=== PATIENT | male | born 1960 | race Caucasian/White ===

== ENCOUNTER 2021-03-05 14:36 | Outpatient (CLI) | payer OTHER, SELFPAY ==
--- NOTE | ~2021-03-05 | DEXA_ITS ---
Bone Density Report Name: Nando Bruner Age: 60 Sex: Male Ethnicity: White Date of : 1960 Indication: hyperparathyroidism; Referring Provider: NORA CURTIS Study: Bone densitometry was performed. Exam Date: March 05, 2021 Accession number: [id number] Bone Density: Region BMD T-score Z-score Classification Total Forearm (Left) 0.641 -0.7 0.0 1/3 Forearm (Left) 0.758 -1.2 -0.4 UD Forearm (Left) 0.479 -0.5 0.2 World Health Organization criteria for BMD impression classify patients as: Normal (T-score at or above -1.0), Osteopenia (T-score between -1.0 and -2.5), or Osteoporosis (T-score at or below -2.5). Clinical Information Provided by Patient: Has the following medical conditions: Hyperparathyroidism Patient maximum height was 71 Drinks caffeinated beverages Impression: The patient has low bone mass, based on the Left Third Radius T-score. Discussion: BONE DENSITY IS LOW AT ONE OR MORE SKELETAL SITES. This patient's lowest T-score is low at one or more skeletal sites. It meets the World Health Organization's (WHO) criteria for ?low bone mass? (T-score between -1.0 and -2.5). The patient's 10-year risk of fracture as calculated by FRAX is less than the threshold where pharmacological therapy is recommended by the National Osteoporosis Foundation (NOF). However, all treatment decisions require clinical judgment and consideration of individual patient factors, including patient preferences, comorbidities, previous drug use, risk factors not captured in the FRAX model (e.g., frailty, falls, vitamin D deficiency, increased bone turnover, interval significant decline in bone density) and possible under or overestimation of fracture risk by FRAX. The patient should follow a healthful lifestyle (good nutrition with adequate calcium and vitamin D, and appropriate weight-bearing exercise). Follow-Up: Consider repeating this study in 2 to 3 years to reassess this patient's status, or sooner if there is some new clinical indication. Reported by: REGI on 03/05/2021 3:20:00 PM. Reviewed, dictated and finalized [facility]
--- NOTE | ~2021-03-05 | DEXA_ITS ---
Bone Density Report Name: Nando Bruner Age: 60 Sex: Male Ethnicity: White Date of : 1960 Indication: hyperparathyroidism; Referring Provider: NORA CURTIS Study: Bone densitometry was performed. Exam Date: March 05, 2021 Accession number: [id number] Bone Density: Region BMD T-score Z-score Classification AP Spine (L1-L4) 0.992 -0.9 -0.3 Normal Femoral Neck (Left) 0.889 -0.3 0.6 Normal Total Hip (Left) 0.942 -0.6 -0.2 Normal Total Hip Bilateral Avg 0.921 -0.8 -0.3 Normal Femoral Neck (Right) 0.893 -0.3 0.7 Normal Total Hip (Right) 0.899 -0.9 -0.4 Normal World Health Organization criteria for BMD impression classify patients as: Normal (T-score at or above -1.0), Osteopenia (T-score between -1.0 and -2.5), or Osteoporosis (T-score at or below -2.5). 10-year Fracture Risk: FRAX not reported because: All T-scores for Spine Total, Hip Total, Femoral Neck at or above -1.0 Clinical Information Provided by Patient: Has the following medical conditions: Hyperparathyroidism Patient maximum height was 71 Drinks caffeinated beverages Impression: The patient has normal bone mass. Discussion: BONE DENSITY IS ABOVE THE MINIMUM DESIRABLE LEVEL AT ALL SKELETAL SITES TESTED. This patient?s bone mineral density is above the minimum desirable level (T-score -1.0 or better) at all sites measured. The patient should follow a healthful lifestyle (good nutrition with adequate calcium and vitamin D, and appropriate weight-bearing exercise). Follow-Up: Consider repeating this study in 5 years or sooner if there is some new clinical indication. Reported by: REGI on 03/05/2021 3:19:00 PM. Reviewed, dictated and finalized at location [facility]
== END 2021-03-05 14:37 | disposition home or self-care (01) ==
PROVIDERS: PCP Family Medicine
DX: E21.3 Hyperparathyroidism, unspecified (principal)
CPT/HCPCS: 77080; 77081

== ENCOUNTER → 2022-01-30 11:11 | Outpatient (CLI) | payer OTHER, SELFPAY ==
--- NOTE | ~2022-01-30 | CT_ITS ---
EXAMINATION: CT abdomen pelvis w con DATE: 01/30/2022 11:40 INDICATION: Right buttock pain. History of kidney stones. Myalgias. TECHNIQUE: Computed tomography (CT) of the abdomen and pelvis was performed with 100 cc Omnipaque 300 intravenous contrast. The dose-length product was 840.46 mGy-cm. Automated exposure control and iter ative reconstruction technique were employed. COMPARISON: CT dated 04/30/2012. FINDINGS: There is dependent atelectasis. Heart size normal. No significant pleural or pericardial ef fusion. There are multiple nonobstructing bilateral renal stones. There is left hydroureteronephrosis . No obstructing stone or mass identified. Bladder wall is mildly thickened, possibly due to underdis tention. Prostate gland mildly prominent with internal calcifications. Nonobstructive bowel gas pattern. Colonic diverticulosis without evidence for diverticulitis. No free air or free fluid. Gallbladder is present. The liver, spleen, adrenal glands are unremarkable. There is chronic left raad al atrophy. No acute osseous abnormality. IMPRESSION: 1. Nonobstructing bilateral nephrolithiasis. 2: Chronic left renal atrophy and hydronephrosis. 3: Mild bladder wall thickening which may be attributable to underdistention, outlet obstruction or cystitis in the appropriate clinical setting. Reviewed, dictated and finalized at location A.
[2022-01-30 11:30] LABS: Estimated Glomerular Filt Rate > 60
== END ==
PROVIDERS: PCP Physician Assistant; Visit Provider Physician Assistant
DX: M79.18 Myalgia, other site (principal); R10.9 Unspecified abdominal pain; N13.30 Unspecified hydronephrosis; N20.0 Calculus of kidney; K57.30 Diverticulosis of large intestine without perforation or abscess without bleeding; N26.1 Atrophy of kidney (terminal)
CPT/HCPCS: 74177; Q9967

== ENCOUNTER 2022-04-01 10:00 | Day surgery (SDC) | payer OTHER, SELFPAY ==
[2022-03-14 09:30] VITALS: BMI 25.1
[2022-04-01 11:09] VITALS: BMI 25.6
[2022-04-01 11:19] VITALS: BP 128/87; PULSE 72; RESP 12; TEMP 36.7; O2SAT 98
--- NOTE | 2022-04-01 11:39 | SUR.PREOP ---
1115; PT STATES LAST STOOL WAS LIQUID YELLOW
--- NOTE | 2022-04-01 12:48 | WPDANESEPPF ---
Anes - Initial Pre Proc Eval Procedure: Operation Date: 04/01/22 12:30 Proposed Procedures p Screening Colonoscopy - Panchito Dykes MD Date/Time: 04/01/22 12:48 Surgeon: Panchito Dykes MD Pre Op Diagnosis: Neoplasm Screening Pre Op Diagnosis: Neoplasm Screening Patient Data Age: 61 Gender: M Height: 1.78 m Weight: 81.1 kg Last Vital Signs Temp 36.7 C 04/01/22 11:19 Pulse 72 04/01/22 11:19 Resp 12 04/01/22 11:19 BP 128/87 04/01/22 11:19 Pulse Ox 98 04/01/22 11:19 O2 Del Method Room Air 04/01/22 11:19 Allergies Allergy/AdvReac Type Severity Reaction Status Date / Time lisinopril AdvReac cough Verified 04/01/22 11:10 Home Medications Medication Instructions Recorded Confirmed Type aspirin 81 mg tablet,delayed 81 mg PO DAILY 11/01/20 04/01/22 History release (Adult Aspirin Regimen) diphenhydramine HCl 25 mg capsule 25 mg PO .qd 11/01/20 04/01/22 History (Benadryl) melatonin 5 mg tablet 5 mg PO QHS 04/09/21 04/01/22 History sodium di- and 1 tablet PO TID 04/09/21 04/01/22 History monophosphate-potassium phos monobasic 250 mg tablet (Phospho-Carey 250 Neutral) dutasteride 0.5 mg-tamsulosin ER 1 cap PO DAILY #90 caps 09/04/21 04/01/22 Rx 0.4 mg capsule ext.release 24hr mphas omeprazole 20 mg capsule,delayed See Rx Instructions .Route 09/26/21 04/01/22 Rx release .COMPLEX #90 caps losartan 25 mg tablet 25 mg PO DAILY #90 tabs 01/03/22 04/01/22 Rx potassium citrate 10 mEq (1,080 10 meq PO DAILY #90 tabs 02/11/22 04/01/22 Rx mg) tablet,extended release peg 3350-electrolytes 236 240 ml PO Q10M #4,000 mL 03/13/22 04/01/22 Rx gram-22.74 gram-6.74 gram-5.86 gram solution (Golytely) naproxen 500 mg tablet 500 mg PO DAILY 03/14/22 04/01/22 History atorvastatin 10 mg tablet See Rx Instructions .Route 03/28/22 04/01/22 Rx .COMPLEX #90 tabs Patient hx anesthesia problems: none Family hx anesthesia problems: none Results Review: All pre-operative results and documents have been reviewed as part of the pre-operative evaluation. [facility] Past Medical History Medical History Acute prostatitis Buttock pain Calculus of kidney Dysphagia History of renal stone Hydronephrosis Plantar fasciitis of right foot Family History Family History Father Hypertension Acute myocardial infarction, Onset Age: 55 Malignant neoplasm of prostate, Onset Age: 65 Other Family history of cardiovascular disease Family history of malignant neoplasm of stomach Social History Social History Smoking status: Never smoker Alcohol intake: current Drinks per week: 4 Substance use: never Substance use type: does not use Living arrangements: with family Spiritual care concerns: No Anes - Eval Final PreProcedure Day of Procedure 04/01/22 12:48 Patient weight: normal Heart: regular rate and rhythm Lungs: clear to auscultation and normal air movement Airway: Mallampati scale class 1 Neurological: alert and oriented Last oral intake: >/= 8 hours ASA classification: II Emergent: no Anesthetic plan: proceed Anesthesia type and monitoring: general GIVS Results Review: All pre-operative results and documents have been reviewed as part of the pre-operative evaluation. Informed Consent: The patient's anesthetic plan and its attendant risks and benefits were discussed with the patient/family/POA. Questions were solicited and answers provided to the satisfaction of the patient/family/POA.
--- NOTE | 2022-04-01 12:57 | P.PNAN_ITS ---
Anes - Eval Final PreProcedure Day of Procedure 04/01/22 12:57 Patient weight: normal Heart: regular rate and rhythm Lungs: clear to auscultation Airway: Mallampati scale class 1 Neurological: alert and oriented Last oral intake: >/= 8 hours ASA classification: II Anesthetic plan: proceed Anesthesia type and monitoring: general GIVS and standard monitoring Results Review: All pre-operative results and documents have been reviewed as part of the pre- operative evaluation. Informed Consent: The patient's anesthetic plan and its attendant risks and benefits were discussed with the patient/family/POA. Questions were solicited and answers provided to the satisfaction of the patient/family/POA.
[2022-04-01] MEDS: LACTATED RINGERS 1,000 ML 100 ML IV CONT (12:59)
--- NOTE | 2022-04-01 13:53 | PM.IMHP ---
H&P: HPI History of Present Illness Date/Time: 04/01/22 13:53 Chief Complaint: Neoplasia screening. Narrative: This is a 61-year-old white male patient presents for screening colonoscopy. Patient's current weight appetite bowel movements are normal. He denies abdominal pain. He has had no bleeding. Family history noncontributory. Last exam 10 years ago was unremarkable. Review of Systems Review of Systems: Review of systems noncontributory. [facility] Past Medical History Medical History Acute prostatitis Buttock pain Calculus of kidney Dysphagia History of renal stone Hydronephrosis Plantar fasciitis of right foot Family History Family History Father Hypertension Acute myocardial infarction, Onset Age: 55 Malignant neoplasm of prostate, Onset Age: 65 Other Family history of cardiovascular disease Family history of malignant neoplasm of stomach Social History Social History Smoking status: Never smoker Alcohol intake: current Drinks per week: 4 Substance use: never Substance use type: does not use Living arrangements: with family Spiritual care concerns: No Meds Home Medications and Allergies Home Medications Medication Instructions Recorded Confirmed Type aspirin 81 mg tablet,delayed 81 mg PO DAILY 11/01/20 04/01/22 History release (Adult Aspirin Regimen) diphenhydramine HCl 25 mg capsule 25 mg PO .qd 11/01/20 04/01/22 History (Benadryl) melatonin 5 mg tablet 5 mg PO QHS 04/09/21 04/01/22 History sodium di- and 1 tablet PO TID 04/09/21 04/01/22 History monophosphate-potassium phos monobasic 250 mg tablet (Phospho-Carey 250 Neutral) dutasteride 0.5 mg-tamsulosin ER 1 cap PO DAILY #90 caps 09/04/21 04/01/22 Rx 0.4 mg capsule ext.release 24hr mphas omeprazole 20 mg capsule,delayed See Rx Instructions .Route 09/26/21 04/01/22 Rx release .COMPLEX #90 caps losartan 25 mg tablet 25 mg PO DAILY #90 tabs 01/03/22 04/01/22 Rx potassium citrate 10 mEq (1,080 10 meq PO DAILY #90 tabs 02/11/22 04/01/22 Rx mg) tablet,extended release peg 3350-electrolytes 236 240 ml PO Q10M #4,000 mL 03/13/22 04/01/22 Rx gram-22.74 gram-6.74 gram-5.86 gram solution (Golytely) naproxen 500 mg tablet 500 mg PO DAILY 03/14/22 04/01/22 History atorvastatin 10 mg tablet See Rx Instructions .Route 03/28/22 04/01/22 Rx .COMPLEX #90 tabs Allergies Allergy/AdvReac Type Severity Reaction Status Date / Time lisinopril AdvReac cough Verified 04/01/22 11:10 Vital Signs Vital Signs - 24 hr 04/01/22 11:19 Temperature 98.0 F Pulse Rate 72 Respiratory Rate 12 Blood Pressure 128/87 Pulse Oximetry 98 Oxygen Delivery Room Air Exam Narrative: Physical exam reveals patient to be alert. Vital signs stable. HEENT exam is unremarkable. Patient is anicteric. Lungs are clear to auscultation and percussion. Heart is without murmur or extra sounds. Abdominal exam bowel sounds present soft nontender with organomegaly. Digital external rectal exam is normal. Assessment and Plan Assessment and plan (1) Encounter for screening colonoscopy: Code(s): Z12.11 - Encounter for screening for malignant neoplasm of colon Status: Acute Assessment and Plan: Patient presents for screening colonoscopy. Appears to be at average risk for colon polyps. Further recommendations may be given after endoscopy.
[2022-04-01 13:56] VITALS: BP 101/66; PULSE 70; RESP 16; TEMP 36.2; O2SAT 100
[2022-04-01 14:06] VITALS: BP 111/80; PULSE 64; RESP 18; O2SAT 100
--- NOTE | 2022-04-01 14:14 | WPDANESPN ---
Anes - Prog Note Post-Op Date/Time: 04/01/22 14:14 Cardiovascular status: normal Respiratory status: normal Airway patency: baseline Mental status: baseline Post-Op hydration status: normal Vital Signs: Last Vital Signs Temp 36.2 C L 04/01/22 13:56 Pulse 64 04/01/22 14:06 Resp 18 04/01/22 14:06 BP 111/80 04/01/22 14:06 Pulse Ox 100 04/01/22 14:06 O2 Del Method Room Air 04/01/22 14:06 Pain Score (VAS): 0/10 I/O: Intake & Output 03/31/22 04/01/22 04/01/22 23:59 07:59 15:59 Intake Total 900 Balance 900 Patient Feedback: Patient satisfied with anesthetic care.
[2022-04-01 14:16] VITALS: BP 119/60; PULSE 60; RESP 10; O2SAT 100
== END 2022-04-01 14:20 | disposition home or self-care (01) ==
PROVIDERS: PCP Family Medicine; Visit Provider Internal Medicine Gastroenterology
PROC: 0DJD8ZZ Inspection of Lower Intestinal Tract, Via Natural or Artificial Opening Endoscopic (ICD-10-PCS; CPT 45378; principal; 2022-04-01 12:30)
DX: Z12.11 Encounter for screening for malignant neoplasm of colon (principal); K64.8 Other hemorrhoids
CPT/HCPCS: 45378

== ENCOUNTER 2022-07-16 13:41 | Emergency (ER) | payer OTHER, SELFPAY ==
--- NOTE | ~2022-07-16 | XR_ITS ---
XR chest 2V DATE: 07/16/2022 16:09 INDICATION: Dizziness TECHNIQUE: 2 views COMPARISON: None FINDINGS: Normal heart size. No hilar or mediastinal enlargement. No pulmonary infiltrate or consolid ation, pleural effusion or pulmonary vascular congestion or pneumothorax. IMPRESSION: No active cardiopulmonary disease Reviewed, dictated and finalized at location A. [employer]
--- NOTE | ~2022-07-16 | CT_ITS ---
EXAMINATION: CT brain wo con DATE: 07/16/2022 16:05 INDICATION: dizziness . TECHNIQUE: Computed tomography (CT) of the head was performed without intravenous contrast. The mA wa s adjusted according to patient size. Iterative reconstruction technique was employed. The dose-lengt h product was 681.00 mGy-cm. COMPARISON: 07/04/2004 FINDINGS: No acute intracranial hemorrhage or extra-axial fluid collection. No hydrocephalus, mass, or herniation. No acute ischemic infarct. Unremarkable dural venous sinus attenuation. No acute osseous abnormality. Poorly pneumatized frontal sinuses. Mucosal thickening in the ethmoid air cells and sphenoid sinus, t he remaining aerated spaces are clear. atrophy and chronic white matter change. Atherosclerotic intracranial calcification. IMPRESSION: No acute intracranial process. Reviewed, dictated and finalized at location K. [employer]
[2022-07-16 14:22] VITALS: BP 105/73; PULSE 82; RESP 14; TEMP 37.1; O2SAT 99
--- NOTE | 2022-07-16 14:26 | ECG_ITS ---
Measurements Intervals [place] Rate: 61 P: 8 OH: 148 QRS: 8 QRSD: 95 T: 0 QT: 395 QTc: 398 Interpretive Statements SINUS RHYTHM BASELINE ARTIFACT- I, III, AVR, AVL, AVF NORMAL ECG NO PREVIOUS ECG AVAILABLE FOR COMPARISON Electronically Signed On 07-16-2022 16:08:03 [employer] by Cristhian Gorman D.O.
[2022-07-16 15:36] LABS: Basophils Percent Auto 0.6 % (0.2-1.2); Eosinophils Absolute Auto 0.1 K/mm3 (0-0.3); Eosinophils Percent Auto 1.9 % (0-4.4); Hematocrit 46.1 % (42.0-52.0); Hemoglobin 15.2 g/dL (14.0-18.0); Immature Granulocyte Absolute 0.01 K/mm3 (0.00-0.031); Immature Granulocyte Percent A 0.3 % (0-0.5); Lymphocytes Absolute Auto 0.48 K/mm3 (0.9-3.2); Lymphocytes Percent Auto 15.4 % (18.3-44.2); Mean Corpuscular Volume 93.9 fl (80-100); Mean Platelet Volume 9.3 fl (7.4-10.4); Monocytes Absolute Auto 0.6 K/mm3 (0.1-0.6); Neutrophils Percent Auto 62.8 % (45.5-73.1); Platelet Count Result 253 k/mm3 (150-375); Red Blood Count 4.91 M/mm3 (4.6-6.20); Red Cell Distribution Width 13.2 % (11.5-14.5); White Blood Count 3.1 K/mm3 (4.5-10.0)
[2022-07-16 15:47] LABS: Alanine Aminotransferase 28 U/L (6-50); Albumin Level 4.2 g/dL (3.5-5.1); Alkaline Phosphatase 81 U/L (38-126); Anion Gap 8 mmol/L (8-16); Aspartate Amino Transferase 33 U/L (17-59); Bilirubin,Total 0.4 mg/dL (0.2-1.3); Blood Urea Nitrogen 14 mg/dL (9-20); Calcium 8.5 mg/dL (8.4-10.2); Carbon Dioxide 27 mmol/L (22-30); Chloride 101 mmol/L (98-107); Estimated CRCL calculation 78 ml/min; Estimated Glomerular Filt Rate > 60; Glucose 120 mg/dL (65-110); Sodium 136 mmol/L (137-145)
--- NOTE | 2022-07-16 15:59 | ED.DIZZY ---
HPI - Dizziness General Chief Complaint: Dizziness Stated Complaint: intermittent dizziness that began several hrs ago Time Seen by Provider: 07/16/22 15:42 Source: RN notes reviewed History of Present Illness HPI Narrative: Patient presents emergency department from home for dizziness. Patient states that he has had 3 episodes of dizziness today states the first episode occurred after he had had a bowel movement and gotten up he states he felt like his heart was racing and had felt like he might pass out at that time at that time he also had felt a tingling sensation in his arms he states that episode lasted approximately 3 to 5 minutes and resolved he then gone out to eat with lunch with friends and had an episode while eating lunch with friends and then again in a car each time it felt like his heart was racing with tingling pain in his arms and feeling lightheaded he states that this time he feels back to baseline denies any fevers or chills shortness of breath abdominal pain nausea vomiting denies any current numbness or tingling he denies ever having a full syncopal episode Related Data Home Medications Medication Instructions Recorded Confirmed aspirin 81 mg tablet,delayed 81 mg PO DAILY 11/01/20 07/14/22 release (Adult Aspirin Regimen) diphenhydramine HCl 25 mg capsule 25 mg PO .qd 11/01/20 07/14/22 (Benadryl) melatonin 5 mg tablet 5 mg PO QHS 04/09/21 07/14/22 sodium di- and 1 tablet PO TID 04/09/21 07/14/22 monophosphate-potassium phos monobasic 250 mg tablet (Phospho-Carey 250 Neutral) Allergies Allergy/AdvReac Type Severity Reaction Status Date / Time lisinopril AdvReac cough Verified 07/16/22 13:43 Review of Systems Review of Systems: Gen.: Denies fevers or chills Eyes: Denies eye pain or visual change ENT: Denies congestion Respiratory: Denies shortness of breath or cough CV: Denies chest pain reports palpitations GI: Denies abdominal pain nausea, emesis or diarrhea denies burning, urgency, frequency or hematuria Musculoskeletal: Denies back pain or muscle pain Neuro: reports dizziness and tingling in the arm Skin: Denies rash Except as documented, all other systems reviewed and negative PMFSH Past Medical History Medical History Acute prostatitis Buttock pain Calculus of kidney Dysphagia History of renal stone Hydronephrosis Plantar fasciitis of right foot Family History Family History (Updated 06/26/22 @ 09:23 by Clarisa Santiago) Father Hypertension Acute myocardial infarction, Onset Age: 55 Malignant neoplasm of prostate, Onset Age: 65 Other , Aunt Pancreatic cancer Other Family history of cardiovascular disease Family history of malignant neoplasm of stomach Social History Social History Social History: Caffeine- coffee daily Smoking status: Never smoker Alcohol intake: current Drinks per week: 6 Alcohol use details: bourbon Substance use: never Substance use type: does not use Spiritual care concerns: No Exam Narrative: APPEARANCE: No acute distress, nontoxic, resting in bed HEENT: Normocephalic, atraumatic, OMM, TMs clear bilaterally EYES: PERRL, EOMI NECK: Supple, nontender, full range of motion without pain, no meningismus RESPIRATORY: No respiratory distress, clear to auscultation bilaterally with no rhonchi wheezing or rales CARDIOVASCULAR: RRR s murmur ABDOMINAL: Soft, nontender, nondistended MUSCULOSKELETAL: Moves all extremities. No clubbing, cyanosis or edema. NEURO: A and O ?3, following commands, speech normal, no facial droop, muscle strength 5 out of 5 bilateral upper and lower extremities SKIN:: Warm, dry. Normal Color PSYCHIATRIC: Normal affect/mood Course Course Emergency Course: Discussed with patient his COVID-positive test he states his was sick last week he states had a mild sore throat fo
[2022-07-16 16:21] VITALS: BP 129/83; PULSE 61; RESP 12; O2SAT 97
[2022-07-16 16:26] LABS: Influenza A QL RT-PCR Negative (Negative); Influenza B QL RT-PCR Negative (Negative); SARS-CoV-2 RNA PCR Positive
[2022-07-16 16:52] LABS: Appearance Urine Clear (Clear); Bilirubin Urine Negative (Negative); Blood Urine Negative (Negative); Color Urine Yellow (Yellow); Glucose Urine UA Negative (Negative); Ketones Urine Negative (Negative); Leukocyte Esterase Ur Negative LEU/UL (Negative); Nitrate Urine Negative (Negative); Protein Urine Negative (Negative); Specific Grav Ur 1.015 (1.001-1.035); pH Urine 7.5 (5.0-9.0)
[2022-07-16 16:57] LABS: Magnesium 2.1 mg/dL (1.6-2.3)
[2022-07-16 16:57] LABS: Add Urine Microscopic? NO
[2022-07-16 16:59] LABS: Partial Thromboplastin Time 24.7 SECONDS (22.3-36.8)
[2022-07-16 17:09] LABS: Troponin I < 0.012 ng/mL (0.000-0.034)
[2022-07-16 17:14] LABS: D Dimer < 0.27 ug/mL (<0.48)
[2022-07-16 17:28] LABS: Thyroid Stimulating Hormone 0.737 uIU/mL (0.465-4.680)
[2022-07-16 18:11] VITALS: BP 128/74; PULSE 62; RESP 12; O2SAT 97
[2022-07-16 18:41] VITALS: BP 127/63; PULSE 64; RESP 20; O2SAT 99
[2022-07-16 18:43] LABS: Troponin I < 0.012 ng/mL (0.000-0.034)
== END 2022-07-16 19:15 | disposition home or self-care (01) ==
PROVIDERS: Emergency Provider Emergency Medicine; PCP Family Medicine
DX: U07.1 COVID-19 (principal); R00.2 Palpitations; N41.0 Acute prostatitis; Z87.442 Personal history of urinary calculi; Z20.822 Contact with and (suspected) exposure to COVID-19
CPT/HCPCS: 36415; 70450; 71046; 80053; 81003; 83735; 84443; 84484; 85025; 85380; 85610; 85730; 87636; 93005; 99284

== ENCOUNTER → 2023-06-08 14:39 | Outpatient (CLI) | payer OTHER, SELFPAY ==
--- NOTE | ~2023-06-08 | MR_ITS ---
EXAMINATION: MR femur RT wo con DATE: 06/08/2023 15:26 INDICATION: Right buttock pain. Myalgia. TECHNIQUE: Magnetic resonance imaging (MRI) of the right femur from the right hip through the distal metaphyseal region was performed without intravenous contrast. Sequences included axial, sagittal and coronal T1-weighted FSE and fluid sensitive FSE STIR. COMPARISON: None. FINDINGS: Mild tendinopathy of the bilateral proximal hamstring tendons with complete avulsion from the ischial tuberosity origin of the proximal right hamstring tendons. There is approximately 1 cm retraction of the torn tendon. There is a large complex fluid collection consistent with hematoma measuring 19 cm craniocaudally and measuring up to 4.8 x 3.3 cm in maximal transaxial dimensions. The majority is of homogeneous high T2 fluid signal intensity with small peripheral more organized regions of T1 hyperin tense clot. There is some surrounding nonloculated feathery edema extending into the immediately roberto cent musculature surrounding the site of the tear and extending caudal to the loculated portion of th e fluid collection along the posterolateral margin of the abductor compartment. Physiologic amount fl uid in the bilateral hip joints bone marrow signal is unremarkable. IMPRESSION: 1. Mild tendinopathy and complete avulsion of the proximal right hamstring tendons from their ischial tuberosity origin. 2. 19 x 4.8 x 3.3 cm hematoma extending caudally along the site of the tear in the posterior compartm ent of the thigh. Reviewed, dictated and finalized at location A. IMPRESSION: 1. Mild tendinopathy and complete avulsion of the proximal right hamstring tend ons from their ischial tuberosity origin. 2. 19 x 4.8 x 3.3 cm hematoma extending caudally along the site of the tear in the posterior compartment of the thigh.
== END ==
PROVIDERS: PCP Family Medicine; Visit Provider Nurse Practitioner Family
DX: S76.301A Unspecified injury of muscle, fascia and tendon of the posterior muscle group at thigh level, right thigh, initial encounter (principal); X58.XXXA Exposure to other specified factors, initial encounter
CPT/HCPCS: 73718

== ENCOUNTER 2023-07-02 09:58 | Outpatient (CLI) | payer OTHER, SELFPAY ==
[2023-07-02 20:17] LABS: Eosinophils Absolute Auto 0.5 K/mm3 (0-0.3); Eosinophils Percent Auto 11.6 % (0-4.4); Hematocrit 45.6 % (42.0-52.0); Hemoglobin 14.8 g/dL (14.0-18.0); Lymphocytes Absolute Auto 1.12 K/mm3 (0.9-3.2); Mean Corpuscular HGB Conc 32.5 g/dl (32-36); Mean Corpuscular Hemoglobin 31.3 pg (26-34); Mean Corpuscular Volume 96.4 fl (80-100); Mean Platelet Volume 10.2 fl (7.4-10.4); Monocytes Absolute Auto 0.8 K/mm3 (0.1-0.6); Neutrophils Absolute Auto 1.7 K/mm3 (1.3-6.7); Neutrophils Percent Auto 41.4 % (45.5-73.1); Platelet Count Result 297 k/mm3 (150-375); Red Blood Count 4.73 M/mm3 (4.6-6.20); Red Cell Distribution Width 13.8 % (11.5-14.5); White Blood Count 4.2 K/mm3 (4.5-10.0)
[2023-07-02 20:46] LABS: Alanine Aminotransferase 28 U/L (6-50); Albumin Level 3.9 g/dL (3.5-5.1); Alkaline Phosphatase 65 U/L (38-126); Aspartate Amino Transferase 38 U/L (17-59); Bilirubin,Total 0.8 mg/dL (0.2-1.3); Blood Urea Nitrogen 21 mg/dL (9-20); Calcium 9.2 mg/dL (8.4-10.2); Carbon Dioxide > 40 mmol/L (22-30); Chloride 102 mmol/L (98-107); Cholesterol 169 mg/dL (0-200); Estimated Glomerular Filt Rate > 60; Glucose 88 mg/dL (65-110); HDL Direct 51 mg/dL; LDL Cholesterol Direct 94 mg/dL; Phosphorus 2.7 mg/dL (2.5-4.5); Potassium 4.9 mmol/L (3.4-5.0); Sodium 135 mmol/L (137-145); Triglycerides 77 mg/dL (<150)
[2023-07-02 20:48] LABS: Vitamin D 25 Hydroxy 71.9 ng/mL
== END 2023-07-02 09:59 | disposition home or self-care (01) ==
LOC: ANHGOSHLAB 10:01
PROVIDERS: PCP Family Medicine; Visit Provider Family Medicine
DX: D70.9 Neutropenia, unspecified (principal); I10 Essential (primary) hypertension; Z12.5 Encounter for screening for malignant neoplasm of prostate; Z79.899 Other long term (current) drug therapy; Z00.00 Encounter for general adult medical examination without abnormal findings
CPT/HCPCS: 36415; 80053; 80061; 82306; 82607; 82728; 84100; 84153; 85025; G0103

== ENCOUNTER 2024-01-26 10:14 | Emergency (ER) | payer OTHER, SELFPAY ==
[2024-01-26] VITALS (9 sets, daily range): BP systolic 118–182; BP diastolic 74–101; PULSE 73–117; RESP 13–20; TEMP 36.7; O2SAT 94–100
--- NOTE | ~2024-01-26 | XR_ITS ---
EXAMINATION: XR chest 2V DATE: 01/26/2024 10:34 INDICATION: Chest pain. TECHNIQUE: Frontal and lateral views of the chest were obtained. COMPARISON: Chest 2 views 07/16/2022 FINDINGS: There is no pneumonia, pleural effusion, or pneumothorax. The heart size is normal. IMPRESSION: 1. No acute cardiopulmonary disease. Reviewed, dictated and finalized at location A.
--- NOTE | 2024-01-26 10:14 | ECG_ITS ---
SEE SCANNED COPY FOR CONFIRMED REPORT MTDD
[2024-01-26 10:28] LABS: Basophils Percent Auto 0.6 % (0.2-1.2); Eosinophils Absolute Auto 0.1 K/mm3 (0-0.3); Eosinophils Percent Auto 1.4 % (0-4.4); Hematocrit 46.3 % (42.0-52.0); Hemoglobin 15.4 g/dL (14.0-18.0); Immature Granulocyte Absolute 0.01 K/mm3 (0.00-0.031); Immature Granulocyte Percent A 0.2 % (0-0.5); Lymphocytes Absolute Auto 1.11 K/mm3 (0.9-3.2); Lymphocytes Percent Auto 22.9 % (18.3-44.2); Mean Corpuscular HGB Conc 33.3 g/dl (32-36); Mean Corpuscular Hemoglobin 31.2 pg (26-34); Mean Corpuscular Volume 93.9 fl (80-100); Mean Platelet Volume 9.3 fl (7.4-10.4); Monocytes Absolute Auto 0.7 K/mm3 (0.1-0.6); Neutrophils Absolute Auto 2.9 K/mm3 (1.3-6.7); Neutrophils Percent Auto 60.9 % (45.5-73.1); Platelet Count Result 304 k/mm3 (150-375); Red Blood Count 4.93 M/mm3 (4.6-6.20); Red Cell Distribution Width 13.2 % (11.5-14.5); White Blood Count 4.8 K/mm3 (4.5-10.0)
[2024-01-26 10:41] LABS: INR 0.9; Prothrombin Time 12.6 Seconds (11.1-14.7)
[2024-01-26 10:42] LABS: Partial Thromboplastin Time 24.6 Seconds (22.3-36.8)
[2024-01-26 10:43] LABS: Alanine Aminotransferase 23 U/L (6-50); Albumin Level 4.5 g/dL (3.5-5.1); Alkaline Phosphatase 73 U/L (38-126); Anion Gap 11 mmol/L (4-12); Aspartate Amino Transferase 30 U/L (17-59); Bilirubin,Total 0.9 mg/dL (0.2-1.3); Blood Urea Nitrogen 17 mg/dL (9-20); Calcium 8.9 mg/dL (8.4-10.2); Carbon Dioxide 20 mmol/L (22-30); Chloride 103 mmol/L (98-107); Estimated CRCL calculation 77 ml/min; Estimated Glomerular Filt Rate > 60; Glucose 130 mg/dL (65-110); Lipase 133 U/L (23-300); Potassium 3.6 mmol/L (3.4-5.0); Sodium 134 mmol/L (137-145)
[2024-01-26 10:53] LABS: Troponin I < 0.012 ng/mL (0.000-0.034)
--- NOTE | 2024-01-26 11:06 | ED.CHESTPAIN ---
HPI - Chest Pain General Chief Complaint: Chest Pain Stated Complaint: CP Time Seen by Provider: 01/26/24 10:17 History of Present Illness HPI narrative: Patient who has been feeling quite stressed at work was at work when he had a sensation if anxiety, felt like he can not catch his breath, felt chest tightness that is moving up to his throat, and tingling to his face and both hands. [place] like he was going to pass out and had to hold onto the rail and felt like almost an out of body experience. Only cardiac history had COVID and this feels different Related Data Home Medications Medication Instructions Recorded Confirmed aspirin 81 mg tablet,delayed 81 mg PO DAILY 11/01/20 10/28/23 release (Adult Aspirin Regimen) diphenhydramine HCl 25 mg capsule 25 mg PO .qd 11/01/20 10/28/23 (Benadryl) melatonin 5 mg tablet 5 mg PO QHS 04/09/21 10/28/23 Allergies Allergy/AdvReac Type Severity Reaction Status Date / Time lisinopril AdvReac cough Verified 01/26/24 10:21 Review of Systems Review of Systems: All systems reviewed & are unremarkable except as noted in HPI and below PMFSH Past Medical History Medical History Acute prostatitis Buttock pain Calculus of kidney Colon cancer screening COVID-19 Dysphagia Hamstring tendonitis at origin with avulsion Hemorrhoid prolapse History of renal stone History of terminal esophageal web Hx of supraventricular tachycardia Hydronephrosis Plantar fasciitis of right foot Seborrheic keratosis Family History Family History Father Hypertension Acute myocardial infarction, Onset Age: 55 Malignant neoplasm of prostate, Onset Age: 65 Other , Aunt Pancreatic cancer Other Family history of cardiovascular disease Family history of malignant neoplasm of stomach Social History Social History (Updated 10/28/23 @ 15:06 by Clarisa Santiago) Social History: Caffeine- iced coffee daily Smoking status: Never smoker Alcohol intake: current Drinks per week: 6 Alcohol use details: bourbon Substance use: never Substance use type: does not use Lack of Transportation: No Lack of Food: Never True Current Housing: I Have Housing Concerned About Future Housing: No Difficulty Paying Gas/Electric Bills: No Difficulty Paying for Meds: No Currently Unemployed: No Education: Master's Degree or Higher Difficulty w/ Childcare or Family Care: No Living arrangements: with family Spiritual care concerns: No Exam Narrative: EXAMINATION OF ORGAN SYSTEMS/BODY AREAS: Constitutional: Vital signs per nursing GENERAL: Appears slightly anxious HEAD: Normal with no signs of head trauma. EYES: EOMI, conjunctiva normal ENT: Hearing grossly intact LUNGS: Nonlabored breathing. HEART: Initially tachycardic ABD: [Soft], [nontender to palpation] EXT: Normal range of motion SKIN: [No rashes or lesions.] NEURO: [Alert and oriented x 3. No gross focal sensory or strength deficits.] Clear speech, symmetric face. Normal gait. PSYCH: Slightly anxious affect Course MANAGER SHOP/PA Physician Supervision I agree with midlevel documentation; I performed the medical decision making component of this evaluation. Vital Signs Vital signs: Vital Signs Pulse Rate 114 H 01/26/24 10:16 Respiratory Rate 16 01/26/24 10:16 Blood Pressure 182/101 H 01/26/24 10:16 Pulse Oximetry 100 01/26/24 10:16 Temperature 98.0 F 01/26/24 14:03 Pulse Rate 82 01/26/24 14:03 Respiratory Rate 14 01/26/24 14:03 Blood Pressure 118/74 01/26/24 14:03 Pulse Oximetry 97 01/26/24 14:03 MDM - Chest Pain MDM Narrative Medical decision making narrative: Patient presenting here with chest tightness, shortness of breath, bilateral hands having. On exam patient was initially [tachycardic and appears slightly anxious]. I will obtain EKG and chest xray
[2024-01-26] MEDS: ASPIRIN 81 MG CHEWABLE TABLET 324 MG PO (11:08)
[2024-01-26 11:16] LABS: Magnesium 1.5 mg/dL (1.6-2.3); Phosphorus 1.8 mg/dL (2.5-4.5)
[2024-01-26] MEDS: MAGNESIUM OXIDE 400 MG TABLET PO (12:01)
[2024-01-26] MEDS: POTASSIUM/PHOSPHORUS/SODIUM 1.5 GM PACKET 1 PACKET PO (12:01)
[2024-01-26 13:49] LABS: Troponin I < 0.012 ng/mL (0.000-0.034)
== END 2024-01-26 14:46 | disposition home or self-care (01) ==
PROVIDERS: Emergency Provider Emergency Medicine; PCP Family Medicine
DX: R07.89 Other chest pain (principal); F41.9 Anxiety disorder, unspecified; Z86.16 Personal history of COVID-19; Z87.442 Personal history of urinary calculi; Z79.82 Long term (current) use of aspirin; Z79.899 Other long term (current) drug therapy
CPT/HCPCS: 36415; 71046; 80053; 83690; 83735; 84100; 84484; 85025; 85610; 85730; 93005; 99284; A9270

== ENCOUNTER 2024-02-29 04:55 | Day surgery (SDC) | payer OTHER, SELFPAY ==
[2024-02-29] VITALS (8 sets, daily range): BP systolic 102–152; BP diastolic 54–91; PULSE 59–76; RESP 14–18; TEMP 36.3–36.5; O2SAT 95–98
--- NOTE | ~2024-02-29 | XR_ITS ---
Portable chest x-ray Comparison: 01/26/2024 Clinical History: Swallowed foreign body Findings: Lungs are clear, without focal consolidation or pleural effusion. Possible COPD. Cardiome diastinal silhouette is stable. Bones and soft tissues are unremarkable. Impression: Clear lungs. Possible COPD. No radiopaque foreign body identified. Reviewed, dictated and finalized at location . Impression: Clear lungs. Possible COPD. No radiopaque foreign body identified.
--- NOTE | 2024-02-29 05:49 | ED.GENADULT ---
HPI - General Adult General Chief complaint: Unspecified Stated complaint: throat pain, swallowed toothpick Time Seen by Provider: 02/29/24 05:17 History of Present Illness HPI narrative: This is a 63-year-old male presenting ED with chief complaint of swallowing a toothpick. Patient said he had a sandwich last night did not realize there was a toothpick in it. He bit into it and then pulled out part of a toothpick. He now has a foreign body sensation and irritation right below his Reynaldo's apple. He thought he may have scratched his throat so he went home after the restaurant went to sleep but when he woke up at 4:00 a.m. he still had irritation. Patient has not had any nausea or vomiting. Patient has been able to swallow water but has not tried any solid foods. Related Data Home Medications Medication Instructions Recorded Confirmed aspirin 81 mg tablet,delayed 81 mg PO DAILY 11/01/20 02/29/24 release (Adult Aspirin Regimen) melatonin 5 mg tablet 10 mg PO QHS 01/27/24 02/29/24 Allergies Allergy/AdvReac Type Severity Reaction Status Date / Time lisinopril AdvReac cough Verified 02/29/24 07:39 [facility] Past Medical History Medical History (Updated 03/07/24 @ 07:05 by Wilfredo Quach MD) Acute prostatitis Buttock pain Calculus of kidney Colon cancer screening COVID-19 Dysphagia Foreign body sensation, throat Hamstring tendonitis at origin with avulsion Hemorrhoid prolapse History of renal stone History of terminal esophageal web Hx of supraventricular tachycardia Hydronephrosis Plantar fasciitis of right foot Seborrheic keratosis Family History Family History Father Hypertension Acute myocardial infarction, Onset Age: 55 Malignant neoplasm of prostate, Onset Age: 65 Other , Aunt Pancreatic cancer Other Family history of cardiovascular disease Family history of malignant neoplasm of stomach Social History Social History Social History: Caffeine- iced coffee daily Smoking status: Never smoker Alcohol intake: current Drinks per week: 6 Alcohol use details: bourbon Substance use: never Substance use type: does not use Do You Feel Safe in your Home?: Yes Lack of Transportation: No Lack of Food: Never True Current Housing: I Have Housing Concerned About Future Housing: No Difficulty Paying Gas/Electric Bills: No Difficulty Paying for Meds: No Currently Unemployed: No Education: Master's Degree or Higher Difficulty w/ Childcare or Family Care: No Living arrangements: with family Spiritual care concerns: No Exam Narrative: APPEARANCE: No apparent distress. Speaking in full sentences, swelling his own secretions Head: atraumatic. no erythema posterior oropharynx EYES: EOMI, NOSE: Atraumatic NECK: Trachea midline RESPIRATORY: No increased rate of breathing clear to auscultation CARDIOVASCULAR: RRR, ABDOMINAL: Non-distended MUSCULOSKELETAl: No obvious deformities NEURO: Alert. Moving 4/4 extremities SKIN:: Warm, dry. Normal color PSYCHIATRIC: Normal affect Course Vital Signs Vital signs: Vital Signs Temperature 97.7 F 02/29/24 05:01 Pulse Rate 67 02/29/24 05:01 Respiratory Rate 17 02/29/24 05:01 Blood Pressure 148/91 H 02/29/24 05:01 Pulse Oximetry 98 02/29/24 05:01 Temperature 97.4 F L 02/29/24 07:41 Pulse Rate 60 02/29/24 09:03 Respiratory Rate 14 02/29/24 09:03 Blood Pressure 113/77 02/29/24 09:03 Pulse Oximetry 98 02/29/24 09:03 Oxygen Delivery Room Air 02/29/24 09:03 Medical Decision Making MDM Narrative Medical decision making narrative: -Course: 63-year-old male presenting after possibly swallowing part of the toothpick. GI was consulted and will come see the patient in the emergency department for possible scope. -DDX includes but is not young
--- NOTE | 2024-02-29 07:05 | PC.NURSE ---
report given to twin sifuentes at this time.
[2024-02-29] MEDS: LACTATED RINGERS 1,000 ML 150 ML IV CONT (07:46)
--- NOTE | 2024-02-29 08:07 | WPDANESEPPF ---
Anes - Initial Pre Proc Eval Procedure: Operation Date: 02/29/24 07:30 Proposed Procedures p Esophagogastroduodenoscopy - Rob Hi MD Date/Time: 02/29/24 08:07 Surgeon: Rob Hi MD Pre Op Diagnosis: throat pain, swallowed toothpick Patient Data Age: 63 Gender: M Height: 1.78 m Weight: 81.8 kg Last Vital Signs Temp 97.4 F L 02/29/24 07:41 Pulse 69 02/29/24 07:41 Resp 18 02/29/24 07:41 BP 152/90 H 02/29/24 07:41 Pulse Ox 98 02/29/24 07:41 O2 Del Method Room Air 02/29/24 07:41 Allergies Allergy/AdvReac Type Severity Reaction Status Date / Time lisinopril AdvReac cough Verified 02/29/24 07:39 Home Medications Medication Instructions Recorded Confirmed Type aspirin 81 mg tablet,delayed 81 mg PO DAILY 11/01/20 02/29/24 History release (Adult Aspirin Regimen) atorvastatin 10 mg tablet See Rx Instructions .Route 04/13/23 02/29/24 Rx .COMPLEX #90 tabs tamsulosin 0.4 mg capsule See Rx Instructions .Route 06/25/23 02/29/24 Rx .COMPLEX #90 caps finasteride 5 mg tablet 5 mg PO DAILY #90 tabs 09/28/23 02/29/24 Rx losartan 25 mg tablet 25 mg PO DAILY #90 tabs 11/27/23 02/29/24 Rx omeprazole 10 mg capsule,delayed See Rx Instructions .Route 11/27/23 02/29/24 Rx release .COMPLEX #90 caps potassium citrate 10 mEq (1,080 10 meq PO DAILY #90 tabs 01/25/24 02/29/24 Rx mg) tablet,extended release sodium di- and 1 tablet PO TID #270 tabs 01/25/24 02/29/24 Rx monophosphate-potassium phos monobasic 250 mg tablet (Phospho-Carey Neutral) melatonin 5 mg tablet 10 mg PO QHS 01/27/24 02/29/24 History sertraline 25 mg tablet See Rx Instructions PO DAILY #60 01/27/24 02/29/24 Rx tabs Patient hx anesthesia problems: none Family hx anesthesia problems: none Results Review: All pre-operative results and documents have been reviewed as part of the pre-operative evaluation. [facility] Past Medical History Medical History Acute prostatitis Buttock pain Calculus of kidney Colon cancer screening COVID-19 Dysphagia Hamstring tendonitis at origin with avulsion Hemorrhoid prolapse History of renal stone History of terminal esophageal web Hx of supraventricular tachycardia Hydronephrosis Plantar fasciitis of right foot Seborrheic keratosis Family History Family History Father Hypertension Acute myocardial infarction, Onset Age: 55 Malignant neoplasm of prostate, Onset Age: 65 Other , Aunt Pancreatic cancer Other Family history of cardiovascular disease Family history of malignant neoplasm of stomach Social History Social History Social History: Caffeine- iced coffee daily Smoking status: Never smoker Alcohol intake: current Drinks per week: 6 Alcohol use details: bourbon Substance use: never Substance use type: does not use Do You Feel Safe in your Home?: Yes Lack of Transportation: No Lack of Food: Never True Current Housing: I Have Housing Concerned About Future Housing: No Difficulty Paying Gas/Electric Bills: No Difficulty Paying for Meds: No Currently Unemployed: No Education: Master's Degree or Higher Difficulty w/ Childcare or Family Care: No Living arrangements: with family Spiritual care concerns: No Anes - Eval Final PreProcedure Day of Procedure 02/29/24 08:07 Patient weight: normal Heart: regular rate and rhythm Lungs: clear to auscultation Airway: Mallampati scale class II and special considerations Neurological: alert and oriented Last oral intake: >/= 8 hours ASA classification: II Emergent: no Anesthetic plan: proceed Anesthesia type and monitoring: general ETT and standard monitoring Results Review: All pre-operative results and documents have been reviewed as par
--- NOTE | 2024-02-29 08:23 | PM.HPGS ---
History of Present Illness History of Present Illness Consent: Risks, benefits, and alternatives have been discussed and questions answered. Patient agrees to proceed with procedure. Chief complaint: throat pain, swallowed toothpick Narrative: Nando Bruner is a 63 year old male here for egd, he had a sandwich last night did not realize there was a toothpick. He bit into it and then pulled out part of a toothpick. He now has a foreign body sensation right below his Reynaldo's apple and he is afraid to eat, he had EGD with dilatation in the past. Currently using omeprazole for GERD. Review of Systems Review of Systems: All systems reviewed & are unremarkable except as noted in HPI and below PMFSH Past Medical History Medical History (Updated 02/29/24 @ 08:25 by Rob Hi MD) Acute prostatitis Buttock pain Calculus of kidney Colon cancer screening COVID-19 Dysphagia Foreign body sensation, throat Hamstring tendonitis at origin with avulsion Hemorrhoid prolapse History of renal stone History of terminal esophageal web Hx of supraventricular tachycardia Hydronephrosis Plantar fasciitis of right foot Seborrheic keratosis Family History Family History Father Hypertension Acute myocardial infarction, Onset Age: 55 Malignant neoplasm of prostate, Onset Age: 65 Other , Aunt Pancreatic cancer Other Family history of cardiovascular disease Family history of malignant neoplasm of stomach Social History Social History Social History: Caffeine- iced coffee daily Smoking status: Never smoker Alcohol intake: current Drinks per week: 6 Alcohol use details: bourbon Substance use: never Substance use type: does not use Do You Feel Safe in your Home?: Yes Lack of Transportation: No Lack of Food: Never True Current Housing: I Have Housing Concerned About Future Housing: No Difficulty Paying Gas/Electric Bills: No Difficulty Paying for Meds: No Currently Unemployed: No Education: Master's Degree or Higher Difficulty w/ Childcare or Family Care: No Living arrangements: with family Spiritual care concerns: No Meds Home Medications and Allergies Home Medications Medication Instructions Recorded Confirmed Type aspirin 81 mg tablet,delayed 81 mg PO DAILY 11/01/20 02/29/24 History release (Adult Aspirin Regimen) atorvastatin 10 mg tablet See Rx Instructions .Route 04/13/23 02/29/24 Rx .COMPLEX #90 tabs tamsulosin 0.4 mg capsule See Rx Instructions .Route 06/25/23 02/29/24 Rx .COMPLEX #90 caps finasteride 5 mg tablet 5 mg PO DAILY #90 tabs 09/28/23 02/29/24 Rx losartan 25 mg tablet 25 mg PO DAILY #90 tabs 11/27/23 02/29/24 Rx omeprazole 10 mg capsule,delayed See Rx Instructions .Route 11/27/23 02/29/24 Rx release .COMPLEX #90 caps potassium citrate 10 mEq (1,080 10 meq PO DAILY #90 tabs 01/25/24 02/29/24 Rx mg) tablet,extended release sodium di- and 1 tablet PO TID #270 tabs 01/25/24 02/29/24 Rx monophosphate-potassium phos monobasic 250 mg tablet (Phospho-Carey Neutral) melatonin 5 mg tablet 10 mg PO QHS 01/27/24 02/29/24 History sertraline 25 mg tablet See Rx Instructions PO DAILY #60 01/27/24 02/29/24 Rx tabs Allergies Allergy/AdvReac Type Severity Reaction Status Date / Time lisinopril AdvReac cough Verified 02/29/24 07:39 Vital Signs Vital Signs - 24 hr 02/29/24 05:01 02/29/24 05:06 02/29/24 06:57 Temperature 97.7 F Pulse Rate 67 76 Respiratory Rate 17 17 16 Blood Pressure 148/91 H 137/91 H Pulse Oximetry 98 98 98 Oxygen Delivery 02/29/24 07:30 02/29/24 07:41 Temperature 97.4 F L Pulse Rate 68 69 Respiratory Rate 14 18 Blood Pressure 147/54 H 152/90 H Pulse Oximetry 97 98 Oxygen Delivery Room Air Exam Const: General: comfortable and no acute
== END 2024-02-29 09:12 | disposition home or self-care (01) ==
LOC: ANHED 07:17 → ANHENDO 07:19
PROVIDERS: Emergency Provider Emergency Medicine; PCP Family Medicine; Visit Provider Internal Medicine Gastroenterology
PROC: 0DJ08ZZ Inspection of Upper Intestinal Tract, Via Natural or Artificial Opening Endoscopic (ICD-10-PCS; CPT 43235; principal; 2024-02-29 07:30)
DX: K22.2 Esophageal obstruction (principal); K44.9 Diaphragmatic hernia without obstruction or gangrene; I10 Essential (primary) hypertension; E78.00 Pure hypercholesterolemia, unspecified; N40.0 Benign prostatic hyperplasia without lower urinary tract symptoms; F41.9 Anxiety disorder, unspecified; Z79.82 Long term (current) use of aspirin
CPT/HCPCS: 43249; 71045; 88305; 99285; C1726; J2704; J7120

== ENCOUNTER 2025-01-31 14:48 | Outpatient (CLI) | payer OTHER, SELFPAY ==
--- NOTE | ~2025-01-31 | US_ITS ---
Ultrasound of the pelvis CLINICAL HISTORY: Lower pelvic pain TECHNIQUE: Sonographic imaging performed the region of the mons pubis at the area of clinical concern . FINDINGS: No solid or cystic mass seen. No fluid collection seen. No hernia identified. IMPRESSION: No significant abnormality seen at the area of clinical concern. Reviewed, dictated and finalized at [facility].
== END 2025-01-31 14:49 | disposition home or self-care (01) ==
LOC: GOSHIMG 14:48
PROVIDERS: PCP Family Medicine; Visit Provider Student in an Organized Health Care Education/Training Program
DX: R10.30 Lower abdominal pain, unspecified (principal)
CPT/HCPCS: 76857

== ENCOUNTER 2025-06-30 02:31 | Day surgery (SDC) | payer OTHER, SELFPAY ==
[2025-06-28 13:13] VITALS: BMI 25.2
--- OUTSIDE RECORDS SUMMARY | 2025-06-30 02:34 | XMS_ITS | Clinical Summary ---
Author Organization [facility] Address [address] [place] [id number] Care Team Providers Care Turbo Generator Oiler Name Role Phone Martha Alexandre MD Unavailable [phone] Martha Alexandre MD Primary Care Provider + Allergies Active Allergy Reactions Criticality Noted Date Comments Lisinopril Other (See comments) Low 08/12/2022 Lightheaded Medications aspirin 81 mg enteric coated tablet Take 1 tablet (81 mg total) by mouth every morning Active OMEPRAZOLE ORAL Take 10 mg by mouth every other day 0 Active atorvastatin (LIPITOR) 10 mg tablet Take 1 tablet (10 mg total) by mouth every morning Active diphenhydrAMINE (BENADRYL) 25 mg capsule Take 1 tablet/capsule (25 mg total) by mouth every morning Active tamsulosin (FLOMAX) 0.4 mg extended release capsuleIndicati ons:Urolithiasi s Take 1 capsule (0.4 mg total) by mouth daily 30 capsule 0 Active Additional Information Patient taking differently:0.4 mg oralEvery morning, Indications: Urolithiasis, Reported on 08/12/2022 potassium citrate ER (UROCIT-K) 10 mEq (1,080 mg) CR tabletIndicatio ns:Nephrolithia sis Take 1 tab 3 times a day with meals. 270 tablet 3 1 Active sodium phosphate - potassium phosphate (Phospho-Carey 250 Neutral) 250 mg tablet TAKE 1 TABLET BY MOUTH THREE TIMES DAILY WITH MEALS needs to schedule appointment 90 tablet 2 Active melatonin 5 mg tablet Active finasteride (PROSCAR) 5 mg tablet Take 1 tablet (5 mg total) by mouth daily 2 Active losartan (COZAAR) 25 mg tablet Take 1 tablet (25 mg total) by mouth daily 2 Active HYDROcodone-gerardo taminophen (NORCO) 5-325 mg per tablet Take by mouth every 8 (eight) hours as needed 3 Active meloxicam (MOBIC) 15 mg tablet Take 1 tablet (15 mg total) by mouth daily 30 tablet 1 3 Active Active Problems Problem Noted Date Diagnosed Date Dizziness 05/06/2023 PVC's (premature ventricular contractions) 10/31 Premature atrial contractions 10/31/2022 Near syncope 08/12/2022 Palpitations 08/12/2022 PSVT (paroxysmal supraventricular tachycardia) 1 10/13/2021 Primary hypertension 08/12/2022 Mixed hyperlipidemia 08/12/2022 Thyroid nodule 06/10/2021 Hypophosphatemia 06/10/2021 Hyperparathyroidism 01/17/2021 Nephrolithiasis 05/25/2020 Overview (05/25/2020): Added automatically from request for surgery [id number] Surgical History Surgery Date Site/Laterality Comments ME PYELOPLASTY SIMPLE Pyeloplasty - (Added by TW Conv) URETERAL STENT PLACEMENT 06/05/2020 Left Medical History Medical History Date Comments Personal history of urinary calculi History of nephrolithiasis - (Added by TW Conv) Dyslipidemia Renal calculi Hyperlipidemia GERD (gastroesophageal reflux disease) Syncope and collapse Family History Medical History Relation Name Comments Cancer Father Heart attack Father Hypertension Father Prostate cancer Father No Known Problems Mother Heart disease Other 1 Family history of cardiac disorder - (Added by TW Conv) Cancer Other 2 Family history of cancer - (Added by TW Conv) Nephrolithiasis Other 3 Family histo ry of nephrolithiasis - (Added by TW Conv) Prostate cancer Other 4 Family histo ry of prostate cancer - (Added by TW Conv) Pancreatic cancer Other 5 Aunt Anesthesia problems Neg Hx Relation Name Status Comments Father (Age 72) Mi at age 51 Mother Alive Other 1 Other 2 Other 3 Other 4 Other 5 Aunt Social History Tobacco Use Types Packs/Day Years Used Date Smoking Tobacco: Never Smokeless Tobacco: Never Alcohol Use Standard Drinks/Week Comments Yes 0 (1 standard drink = 0.6 oz pur e alcohol) social Sex and Gender Information Value Date Recorded Sex Assigned at Not on file Legal Sex Male 8:11 PM C [employer] Gender Identity Not on file Sexual Orientation Not on file Obstetrics History Last Filed Vital Signs Vital Sign Reading Time Taken Comments Blood Pressure 123/80 06/12/2023 11:41 AM CDT Pulse 70 06/12/2023 11:41 AM CDT Temperature 36.6 C (97.9 F) 01/17/2021 2:52 PM CDT Respiratory Rate 16 06/18/2020 2:00 PM CDT Oxygen Saturation 98% 05/06/2023 2:28 PM CDT Inhaled Oxygen Concentration - - Weight 83.8 kg (184 lb 11.2 oz) 023 11:41 AM CDT Height 177.8 cm (5' 10) 06/12/2023 11: 41 AM CDT Body Mass Index 26.5 06/12/2023 11:41 AM CDT Plan of Treatment Health Maintenance Due Date Last Done Comments Colon Cancer Screening-Colonoscopy 1961 Depression Screening 1961 Hepatitis C Screening 1961 Prostate Cancer Screening-PSA 1961 DTaP/Tdap/Td Vaccine (1 - Tdap) 1972 Hepatitis B Screening 1979 Regular Well Visit/Exam 18-64 1979 Zoster Vaccine (1 of 2) 2011 Influenza Vaccine (#1) 2025 09/01/2012 Pneumococcal vaccine <65 Aged Out No longer eligible based on patient's age to complete this topic Medical Devices Explanted Type Area Cast Iron Drain Pipe Layer Device Identifier Shelf Expiration Date Model / Serial / Lot [employer] [id number] 6fr 24cm 145cm Radiopaque Positioner Filiform Flexible Tip - Sna - [id number] Implanted:Qty: 1 on 06/18/2020 by Miroslava Rocha MD at [facility] Explanted:Qty: 1 on 06/28/2020 by Miroslava Rocha MD Stent Left: Ureter [employer] [id number] 04/18/2023 [id number] / NA / [id number] [employer] [id number] Od6 Fr L28 Cm L145 Cm Radiopaque; Positioner; Filiform Flexible T - [id number] Implanted:Qty: 1 on 06/05/2020 by Miroslava Rocha MD at [facility] Explanted:Qty: 1 on 06/18/2020 by Miroslava Rocha MD at [facility] Left: Ureter [employer] [id number] 02/22/2023 [id number] / / [id number] Insurance [facility] Address: [place] [address] [facility] CHO[facility] PLUS [facility] CHO[facility] PLUS Care Teams Turbo Generator Oiler Relationship Specialty Start Date End Date Martha Alexandre MD PCP - General Family Medicine 05/06/23 Martha Alexandre MD 12/18/20
--- OUTSIDE RECORDS SUMMARY | 2025-06-30 02:36 | XMS_ITS | Clinical Summary ---
Author Organization [facility] Address [address] [place] [address] Care Team Providers Care Employment Evaluator/Case Manager Name Role Phone Martha Alexandre MD Primary Care Provider [phone] Source Comments [facility],non-owned Affiliates and Associated Physician Practices is amultiple site organization consisting of ambulatory clinics and hospital sitesin [place], [place], [place] and [place]. This disclosure is being madepursuant to the Care Everywhere program and may not contain all information available regarding this patient. Last updated 18.[facility] Allergies No known active allergies Medications * Be aware that medications may not be up to date on this document. Alwaysverify current medications with the patient. 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 STAY STITCHER Respiratory Rate 16 10/10/2019 10:09 AM SEAM STAY STITCHER Oxygen Saturation 98% 10/10/2019 10:09 AM SEAM STAY STITCHER Inhaled Oxygen Concentration - - Weight 79.4 kg (175 lb) 10/10/2019 10:09 AM SEAM STAY STITCHER Height 177.8 cm (5' 10) 10/10/2019 10:09 AM SEAM STAY STITCHER Body Mass Index 25.11 10/10/2019 10:09 AM SEAM STAY STITCHER Plan of Treatment Health Maintenance Due Date Last Done Comments COLOGUARD (AGES 45-75) - COL ON CA SCREENING 1961 COLON MONITORING 1961 COLONOSCOPY - COLON CA SCREENING 1961 CT COLONOGRAPHY - COLON CA SCREENING 1961 Colorectal Cancer Screening 1961 FIT - COLON CA SCREENING 1961 FLEX SIG - COLON CA SCREENING 1961 HIV SCREENING 1976 HEPATITIS C SCREENING 05/04/1979 DTAP/TDAP/TD VACCINES (1 - Tdap) 1980 PNEUMOCOCCAL VACCINE 50+ (1 of 1 - PCV) 2011 ZOSTER VACCINE (1 of 2) 2011 SCREENING FOR DIABETES 10/10/2019 DEPRESSION SCREENING 09/07/2024 COVID-19 VACCINE (1 - 2023-2 5 season) 2025 INFLUENZA VACCINE (#1) 2025 Respiratory Syncytial Virus (RSV) Vaccine Pt: or over 60 yrs (1 - 1-dose 75+ series) 2036 HEPATITIS B VACCINE Aged Out No longe r eligible based on patient's age to complete this topic HIB VACCINE Aged Out No longer eligi ble based on patient's age to complete this topic HPV VACCINE Aged Out No longer eligi ble based on patient's age to complete this topic MENINGOCOCCAL (Group B) VACC INE SHARED DECISION-MAKING Aged Out No longer eligibl e based on patient's age to complete this topic MENINGOCOCCAL GROUPS A/C/Y/W VACCINE Aged Out No longer eligible b ased on patient's age to complete this topic Insurance * Guarantor: NANDO RASHEED Account Type Relation to Patient Date of Phone Billing Address Personal/Family [address] CARE SELF PAY NO INSURANCE Member Subscriber Plan / Payer (Ef fective for All Dates) Name:Nando Rasheed Member ID:Not on file Relation to Subscriber:Not on file Name:NANDO RASHEED Subscriber ID:Not on file Address: [address] [place] [address] Payer ID:Not on file Group ID:Not on file Type:Self Pay Address: [place], [place] * Guarantor: NANDO RASHEED Account Type Relation to Patient Date of Phone Billing Address Personal/Family [address] CARE SELF PAY NO INSURANCE Member Subscriber Plan / Payer (Ef fective for All Dates) Name:Nando Rasheed Member ID:Not on file Relation to Subscriber:Not on file Name:NANDO RASHEED Subscriber ID:Not on file Address: [address] [place] [address] Payer ID:Not on file Group ID:Not on file Type:Self Pay Address: [place], [place] * Guarantor: SCHOENTHAL,NANDO Account Type Relation to Patient Date of Phone Billing Address Personal/Family [address] [place] [address] [facility] SELF PAY NO INSURANCE Member Subscriber Plan / Payer (Ef fective for All Dates) Name:Nando Rasheed Member ID:Not on file Relation to Subscriber:Not on file Name:NANDO RASHEED Subscriber ID:Not on file Address: [address] [place] [id number] Payer ID:Not on file Group ID:Not on file Type:Self Pay Address: [place], [place] Care Teams Employment Evaluator/Case Manager Relationship Specialty Start Date End Date Martha Alexandre MD [address] [address] PCP - General Family Medicine 10/10/19
[2025-06-30 09:16] VITALS: BP 107/79; PULSE 85; RESP 19; TEMP 36.3; O2SAT 100
[2025-06-30] MEDS: LACTATED RINGERS 1,000 ML 150 ML IV CONT (09:24)
--- NOTE | 2025-06-30 10:29 | WPDANESEPPF ---
Anes - Initial Pre Proc Eval Procedure: Operation Date: 06/30/25 10:30 Proposed Procedures p Diagnostic Colonoscopy - Rob Hi MD Date/Time: 06/30/25 10:29 Surgeon: Rob Hi MD Pre Op Diagnosis: Melena Patient Data Age: 65 Gender: M Height: 1.78 m Weight: 79.6 kg Last Vital Signs Temp 97.4 F L 06/30/25 09:16 Pulse 85 06/30/25 09:16 Resp 19 06/30/25 09:16 BP 107/79 06/30/25 09:16 Pulse Ox 100 06/30/25 09:16 O2 Del Method Room Air 06/30/25 09:16 Allergies Allergy/AdvReac Type Severity Reaction Status Date / Time lisinopril AdvReac cough Verified 06/30/25 09:14 Home Medications ?Medication ?Instructions ?Recorded ?Confirmed ?Type aspirin 81 mg tablet,delayed 81 mg PO DAILY 11/01/20 06/30/25 History release (Adult Aspirin Regimen) melatonin 5 mg tablet 10 mg PO QHS 01/27/24 06/28/25 History losartan 25 mg tablet 25 mg PO DAILY #90 tabs 05/02/24 06/28/25 Rx Held on 07/07/24. Instructions: .Provider Order multivitamin with minerals-folic 1 tablet PO DAILY 07/07/24 06/30/25 History acid 400 mcg-lycopene 370 mcg tablet (One-A-Day Men's 50 Plus) finasteride 5 mg tablet 5 mg PO DAILY #90 tabs 09/05/24 06/30/25 Rx sertraline 25 mg tablet 25 mg PO DAILY #90 tabs 09/05/24 06/30/25 Rx omeprazole 10 mg capsule,delayed 10 mg PO DAILY #90 caps 10/31/24 06/30/25 Rx release atorvastatin 20 mg tablet (Lipitor) 20 mg PO DAILY #90 tabs 02/22/25 06/30/25 Rx tamsulosin 0.4 mg capsule See Rx Instructions .Route 02/27/25 06/30/25 Rx .COMPLEX #90 caps sodium di- and 1 tablet PO TID #270 tabs 04/14/25 06/30/25 Rx monophosphate-potassium phos monobasic 250 mg tablet (Phospho-Carey Neutral) potassium citrate 10 mEq (1,080 10 meq PO DAILY #100 tabs 06/30/25 Rx mg) tablet,extended release Patient hx anesthesia problems: none Family hx anesthesia problems: none Results Review: All pre-operative results and documents have been reviewed as part of the pre-operative evaluation. [facility] Past Medical History Medical History Foreign body sensation, throat 6. egd: esophageal ring dilated/ hiatal hernia Hx of supraventricular tachycardia Hamstring tendonitis at origin with avulsion Right hamstring injury MR 10.2.23: Mild tendinopathy and complete avulsion of the proximal right hamstring tendons from their ischial tuberosity origin.19 x 4.8 x 3.3 cm hematoma extending caudally along the site of the tear in the posterior compartment of the thigh. Colon cancer screening History of terminal esophageal web COVID-19 Seborrheic keratosis Hemorrhoid prolapse Buttock pain Acute prostatitis Calculus of kidney Dysphagia History of renal stone Hydronephrosis Plantar fasciitis of right foot Family History Family History Father Hypertension Acute myocardial infarction, Onset Age: 55 Malignant neoplasm of prostate, Onset Age: 65 Other , Aunt Pancreatic cancer Other Family history of cardiovascular disease Family history of malignant neoplasm of stomach Social History Social History Social History: Caffeine- iced coffee daily Smoking status: Never smoker Alcohol intake: current Drinks per week: 6 Alcohol use details: bourbon Substance use: never Substance use type: does not use Do You Feel Safe in your Home?: Yes Lack of Transportation: No Lack of Food: Never True Current Housing: I Have Housing Concerned About Future Housing: No Difficulty Paying Gas/Electric Bills: No Difficulty Paying for Meds: No Currently Unemployed: No Education: Master's Degree or Higher Difficulty w/ Childcare or Family Care: No Living arrangements: with family Spiritual care concerns: No Anes - Eval Final PreProcedure Day of Procedure 06/30/25 10:29 Patient weight: normal Lungs: normal air movement Airway: Mallampati scale class II Neurological: alert and oriented Last oral intake: >/= 8 hours ASA classification: II Emergent: no Anesthetic plan: proceed Anesthesia type and monitoring: general GIVS and standard monitoring Results Review: All pre-operative results and documents have been reviewed as part of the pre-operative evaluation. HTN, hyperlipidemia. Active, no cp or sob. Informed Consent: The patient's anesthetic plan and its attendant risks and benefits were discussed with the patient/family/POA. Questions were solicited and answers provided to the satisfaction of the patient/family/POA.
--- NOTE | 2025-06-30 10:31 | PM.HPGS ---
History of Present Illness History of Present Illness Consent: Risks, benefits, and alternatives have been discussed and questions answered. Patient agrees to proceed with procedure. Chief complaint: Melena Narrative: Nando Bruner Jr. is a 65 year old male with last colonoscopy in 2021, recently noted blood in stools. Review of Systems Review of Systems: All systems reviewed & are unremarkable except as noted in HPI and below PMFSH Past Medical History Medical History Foreign body sensation, throat 02.29.24 egd: esophageal ring dilated/ hiatal hernia Hx of supraventricular tachycardia Hamstring tendonitis at origin with avulsion Right hamstring injury MR 10.2.23: Mild tendinopathy and complete avulsion of the proximal right hamstring tendons from their ischial tuberosity origin.19 x 4.8 x 3.3 cm hematoma extending caudally along the site of the tear in the posterior compartment of the thigh. Colon cancer screening History of terminal esophageal web COVID-19 Seborrheic keratosis Hemorrhoid prolapse Buttock pain Acute prostatitis Calculus of kidney Dysphagia History of renal stone Hydronephrosis Plantar fasciitis of right foot Family History Family History Father Hypertension Acute myocardial infarction, Onset Age: 55 Malignant neoplasm of prostate, Onset Age: 65 Other , Aunt Pancreatic cancer Other Family history of cardiovascular disease Family history of malignant neoplasm of stomach Social History Social History Social History: Caffeine- iced coffee daily Smoking status: Never smoker Alcohol intake: current Drinks per week: 6 Alcohol use details: bourbon Substance use: never Substance use type: does not use Do You Feel Safe in your Home?: Yes Lack of Transportation: No Lack of Food: Never True Current Housing: I Have Housing Concerned About Future Housing: No Difficulty Paying Gas/Electric Bills: No Difficulty Paying for Meds: No Currently Unemployed: No Education: Master's Degree or Higher Difficulty w/ Childcare or Family Care: No Living arrangements: with family Spiritual care concerns: No Meds Home Medications and Allergies Home Medications ?Medication ?Instructions ?Recorded ?Confirmed ?Type aspirin 81 mg tablet,delayed 81 mg PO DAILY 11/01/20 06/30/25 History release (Adult Aspirin Regimen) melatonin 5 mg tablet 10 mg PO QHS 01/27/24 06/28/25 History losartan 25 mg tablet 25 mg PO DAILY #90 tabs 05/02/24 06/28/25 Rx Held on 07/07/24. Instructions: .Provider Order multivitamin with minerals-folic 1 tablet PO DAILY 07/07/24 06/30/25 History acid 400 mcg-lycopene 370 mcg tablet (One-A-Day Men's 50 Plus) finasteride 5 mg tablet 5 mg PO DAILY #90 tabs 09/05/24 06/30/25 Rx sertraline 25 mg tablet 25 mg PO DAILY #90 tabs 09/05/24 06/30/25 Rx omeprazole 10 mg capsule,delayed 10 mg PO DAILY #90 caps 10/31/24 06/30/25 Rx release atorvastatin 20 mg tablet (Lipitor) 20 mg PO DAILY #90 tabs 02/22/25 06/30/25 Rx tamsulosin 0.4 mg capsule See Rx Instructions .Route 02/27/25 06/30/25 Rx .COMPLEX #90 caps sodium di- and 1 tablet PO TID #270 tabs 04/14/25 06/30/25 Rx monophosphate-potassium phos monobasic 250 mg tablet (Phospho-Carey Neutral) potassium citrate 10 mEq (1,080 10 meq PO DAILY #100 tabs 06/30/25 Rx mg) tablet,extended release Allergies Allergy/AdvReac Type Severity Reaction Status Date / Time lisinopril AdvReac cough Verified 06/30/25 09:14 Vital Signs Vital Signs - 24 hr 06/30/25 09:16 Temperature 97.4 F L Pulse Rate 85 Respiratory Rate 19 Blood Pressure 107/79 Pulse Oximetry 100 Oxygen Delivery Room Air Exam Const: General: comfortable and no acute distress HENMT: Face/Nose/Sinus: Normal nares present Eyes: General: appearance normal, both eyes and all related structures Neck: Neck: no JVD Resp: Auscultation: clear to auscultation bilaterally Cardio: Rate: regular rate Rhythm: regular rhythm GI: Inspection: non-distended GI Palp: Yes Soft to palpation Skin: General skin exam: normal color Extrem: General: normal to inspection Psych: Mental Status: mental status grossly normal Assessment and Plan Assessment and plan (1) Blood in stool: Code(s): K92.1 - Melena Status: Acute Assessment and Plan: colonoscopy
[2025-06-30 10:47] VITALS: BP 81/53; PULSE 72; RESP 16; O2SAT 98
[2025-06-30 10:57] VITALS: BP 96/65; PULSE 73; RESP 20; O2SAT 98
[2025-06-30 11:07] VITALS: BP 117/78; PULSE 67; RESP 23; O2SAT 100
== END 2025-06-30 11:11 | disposition home or self-care (01) ==
PROVIDERS: PCP Family Medicine; Referring Provider Student in an Organized Health Care Education/Training Program; Visit Provider Internal Medicine Gastroenterology
PROC: 0DJD8ZZ Inspection of Lower Intestinal Tract, Via Natural or Artificial Opening Endoscopic (ICD-10-PCS; CPT 45378; principal; 2025-06-30 10:30)
DX: K64.8 Other hemorrhoids (principal); K57.30 Diverticulosis of large intestine without perforation or abscess without bleeding; I10 Essential (primary) hypertension; E78.5 Hyperlipidemia, unspecified; I47.10 Supraventricular tachycardia, unspecified; Q39.4 Esophageal web; L82.1 Other seborrheic keratosis; Z79.82 Long term (current) use of aspirin; Z87.442 Personal history of urinary calculi; Z80.42 Family history of malignant neoplasm of prostate; Z80.0 Family history of malignant neoplasm of digestive organs; Z82.49 Family history of ischemic heart disease and other diseases of the circulatory system
CPT/HCPCS: 43278; J2003; J2704; J7120